=== PATIENT | female | born 2005 | race Two or more races ===

== ENCOUNTER 2024-10-30 19:57 | Emergency (ER) | payer MEDICAID ==
[~2024-10-30] VITALS: Ht 175.3 cm; Wt 103.8 kg
[2024-10-30 20:59] LABS: Basophils # (auto) 0 10 ^3/uL (0-0.2); Basophils % (auto) 0.2 % (0.0-2.0); Eosinophils # (auto) 0.1 10 ^3/uL (0-0.8); Eosinophils % (auto) 0.5 % (0.0-7.0); Hematocrit 45.2 % (36.0-46.0); Hemoglobin 15.7 g/dL (12.2-16.2); Lymphocytes # (auto) 0.7 10 ^3/uL (0.4-5.4); Lymphocytes % (auto) 6.8 % (10.0-50.0); Mean Corpuscular Hemoglobin 29.8 pg (28.0-32.0); Mean Corpuscular Hgb Conc. 34.7 g/dL (32.0-36.0); Monocytes # (auto) 0.3 10 ^3/uL (0-1.3); Monocytes % (auto) 2.8 % (0.0-12.0); Neutrophils % (auto) 89.7 % (37.0-80.0); Nucleated Red Blood Cells % 0.3 %; Platelet Count (auto) 254 10^3/uL (140-450); Red Blood Cells 5.25 10^6/uL (4.0-5.20)
[2024-10-30 21:19] LABS: Alanine Aminotransferase 27 U/L (7-40); Alkaline Phosphatase 86 U/L (46-116); Anion Gap 9 (5-15); Aspartate Aminotransferase 19 U/L (13-40); BUN/Creatinine Ratio 16.4 (10.0-20.0); Bilirubin, Total 0.9 mg/dL (0.2-1.0); Blood Urea Nitrogen 11 mg/dL (9-23); Calcium 10.1 mg/dL (8.7-10.4); Carbon Dioxide 23 mmol/L (20-31); Chloride 105 mmol/L (98-107); Lipase 51 U/L (12-53); Potassium 3.8 mmol/L (3.5-5.1); Sodium 137 mmol/L (136-145); Total Protein 7.9 g/dL (5.7-8.2)
[2024-10-30 21:25] VITALS: PULSE 105; RESP 20; O2SAT 99
[2024-10-30 21:30] LABS: Glucose 89 mg/dL (74-106)
[2024-10-30] MEDS: ONDANSETRON HCL 4 MG/2 ML VIAL IV ONE (21:37)
[2024-10-30] MEDS: SODIUM CHLORIDE 0.9% 1,000 ML IV ONE (21:37)
--- NOTE | 2024-10-30 22:22 | ED.PDOC ---
GI ASSESSMENT HPI Comments 19y F who presents to the ED for chief complaint of nausea and vomiting. Pt states she has been nausea and vomiting for the past 1 week. Pt states she has been having associated diffuse abdominal pain, rating her pain 8/10, constant, aching in nature, with no associated exacerbating or relieving factors. Pt states she has 10 vomiting episodes today and states she has not been able to keep any solids or liquids in this time period. Pt states she is currently on Wegovy and states she was off the medication for a few months due to medication running out. Pt otherwise denies any recent sick contacts or changes to diet. Pt denies any other symptoms at this time. Chief Complaint: Nausea/Vomiting Time Seen by MD: 22:11 Primary Care Provider: Siegel Reviewed Notes: Nurses Notes Allergies: Coded Allergies: NO KNOWN ALLERGIES (Unverified , 10/30/24) Home Meds Active Scripts Ondansetron Odt 4MG Tab (ZOFRAN PO) 4 Mg Tb, 4 MG PO TIDPRN PRN for 3 Days, #9 TAB ODT TAB-DISSOLVE IN MOUTH, THEN SWALLOW Prov:ANAMARIA CASE MD 10/31/24 Information Source: Patient Mode of Arrival: Ambulatory Brought in by: mother Vital Signs Vital Signs Date Time Temp Pulse Resp B/P (MAP) Pulse Ox O2 Delivery O2 Flow Rate FiO2 10/31/24 04:10 98 16 100 Room Air 10/31/24 04:10 99.0 147/88 (107) 99.0 10/30/24 21:25 0 21 Physical Exam General: Awake, alert and oriented. No acute distress. Skin: Skin in warm, dry and intact. Appropriate color for ethnicity. Nailbeds pink with no cyanosis. HEENT: The head is normocephalic and atraumatic. Conjunctivae are clear without exudates or hemorrhage. Sclera is non-icteric. EOM are intact. No signs of nystagmus. Eyelids are normal in appearance without swelling or lesions. Oral mucosa is pink and moist Neck: The neck is supple with normal range of motion. No JVD. Cardiac: Heart rate and rhythm are normal. No murmurs, gallops, or rubs are auscultated. Respiratory: No signs of respiratory distress. Lung sounds are clear in all lobes bilaterally without rales, ronchi, or wheezes. Abdominal: Abdomen is soft, non-tender without distention. Bowel sounds are present and normoactive in all four quadrants. Extremities: Upper and lower extremities are atraumatic in appearance without deformity or edema. Neurological: The patient is awake, alert and oriented to person, place, and time with normal speech. Speech is clear. There is no facial asymmetry. Psychiatric: Appropriate mood and affect. Good judgement and insight. No visual or auditory hallucinations. Review of Systems: As stated in HPI Was a procedure done? Was a procedure done?: No GI differential Dx Differential Diagnosis: Gastritis/PUD, Gastroenteritis, Electrolyte Imbalance, Food Poisoning, Bacterial, Viral Other Differential Diagnosis medication side effect, X-Ray, Labs, Meds, VS Vital Signs Date Time Temp Pulse Resp B/P (MAP) Pulse Ox O2 Delivery O2 Flow Rate FiO2 10/31/24 04:10 98 16 100 Room Air 10/31/24 04:10 99.0 98 16 147/88 (107) 100 99.0 10/30/24 21:25 105 20 99 Room Air* 0 21 10/30/24 21:24 107 18 110/73 (85) 99 10/30/24 20:11 97.5 103 20 122/53 (76) 97 Lab Test 10/31/24 02:46 10/30/24 20:30 Range/Units Urine Color Yellow Yellow Urine Clarity Clear Clear Urine pH 5.5 5.0-9.0 Urine Specific Barton 1.026 1.001-1.035 Urine Protein Negative Negative Urine Ketones 4+ H Negative Urine Blood Negative Negative /uL Urine Nitrite Negative Negative Urine Bilirubin Negative Negative Urine Urobilinogen Normal Negative mg/dL Urine Leukocyte Esterase Negative Negative /uL Urine RBC 2 0 - 4 /hpf Urine WBC 2 0 - 5 /hpf Urine Squamous Epithelial Cells Few <5 /hpf Urine Bacteria None seen None Seen /hpf Urine Mucus Few None Seen Urine Glucose Normal Normal mg/dL Urine Test Negative Negative White Blood Count 10.0 4.4-10.8 10^3/uL Red Blood Count 5.25 H 4.0-5.20 10^6/uL Hemoglobin 15.7 12.2-16.2 g/dL Hematocrit 45.2 36.0-46.0 % Mean Corpuscular Volume 86.0 80.0-100.0 fL Mean Corpuscular Hemoglobin 29.8 28.0-32.0 pg Mean Corpuscular Hemoglobin Concent 34.7 32.0-36.0 g/dL Red Cell Distribution Width 14.0 11.8-14.3 % Platelet Count 254 140-450 10^3/uL Mean Platelet Volume 7.9 6.9-10.8 fL Neutrophils (%) (Auto) 89.7 H 37.0-80.0 % Lymphocytes (%) (Auto) 6.8 L 10.0-50.0 % Monocytes (%) (Auto) 2.8 0.0-12.0 % Eosinophils (%) (Auto) 0.5 0.0-7.0 % Basophils (%) (Auto) 0.2 0.0-2.0 % Neutrophils # (Auto) 9.0 H 1.6-8.6 10 ^3/uL Lymphocytes # (Auto) 0.7 0.4-5.4 10 ^3/uL Monocytes # (Auto) 0.3 0-1.3 10 ^3/uL Eosinophils # (Auto) 0.1 0-0.8 10 ^3/uL Basophils # (Auto) 0 0-0.2 10 ^3/uL Nucleated Red Blood Cells 0.3 % Sodium Level 137 136-145 mmol/L Potassium Level 3.8 3.5-5.1 mmol/L Chloride Level 105 98-107 mmol/L Carbon Dioxide Level 23 20-31 mmol/L Anion Gap 9 5-15 Blood Urea Nitrogen 11 9-23 mg/dL Creatinine 0.67 0.550-1.02 mg/dL Glomerular Filtration Rate Calc 127 >90 mL/min BUN/Creatinine Ratio 16.4 10.0-20.0 Serum Glucose 89 74-106 mg/dL Calcium Level 10.1 8.7-10.4 mg/dL Total Bilirubin 0.9 0.2-1.0 mg/dL Aspartate Amino Transferase (AST) 19 13-40 U/L Alanine Aminotransferase (ALT) 27 7-40 U/L Alkaline Phosphatase 86 46-116 U/L Total Protein 7.9 5.7-8.2 g/dL Albumin 5.0 H 3.2-4.8 g/dL Lipase 51 12-53 U/L Current Medications Medications (Trade) Dose Ordered Sig/Balwinder Route Start Time Stop Time Status Last Admin Ondansetron HCl (Zofran) 4 mg ONCE ONCE IV 10/31/24 03:45 10/31/24 03:46 DC 10/31/24 04:00 Time of 1ST Reevaluation: 22:45 Reevaluation 1ST: Unchanged Patient Education/Counseling: Diagnosis, Treatment Family Education/Counseling: Diagnosis, Treatment Departure 1 Departure Time of Disposition: 03:40 Impression: Primary Impression: Nausea & vomiting Disposition: 01 HOME / SELF CARE / HOMELESS Condition: Stable Additional Instructions: ED DISCHARGE INSTRUCTIONS Instructions: Please read all instructions provided in this packet carefully. Although you have been discharged from the Emergency Department, this does not mean that you have a "clean bill of health". No definitive diagnosis for your symptoms has been made today. It is possible that you are in the process of developing a serious illness. This is why you must return to the ED without fail if any new or worsening symptoms (especially if your symptoms include chest pain, trouble breathing, abdominal pain, fever, headache, confusion, trouble seeing, or trouble walking) It is also very important that you see a primary care doctor within the next 1- 3 days to follow up. If you are unable to get an appointment, return to the ED for re-evaluation. Nausea and Vomiting: Care Instructions Overview When you are nauseated, you may feel weak and sweaty and notice a lot of saliva in your mouth. Nausea often leads to vomiting. Most of the time you do not need to worry about nausea and vomiting, but they can be signs of other illnesses. Two common causes of nausea and vomiting are a stomach infection and food poisoning. Nausea and vomiting from a viral stomach infection will usually start to improve within 24 hours. Nausea and vomiting from food poisoning may last from 12 to 48 hours. The doctor has checked you carefully, but problems can develop later. If you notice any problems or new symptoms, get medical treatment right away. Follow-up care is a jaramillo part of your treatment and safety. Be sure to make and go to all appointments, and call your doctor if you are having problems. It's also a good idea to know your test results and keep a list of the medicines you take. How can you care for yourself at home? To prevent dehydration, drink plenty of fluids. Choose water and other clear liquids until you feel better. If you have kidney, heart, or liver disease and have to limit fluids, talk with your doctor before you increase the amount of fluids you drink. Rest in bed until you feel better. When you are able to eat, try clear soups, mild foods, and liquids until all symptoms are gone for 12 to 48 hours. Other good choices include dry toast, crackers, cooked cereal, and gelatin dessert, such as Jell-O. When should you call for help? Call 911 anytime you think you may need emergency care. For example, call if: You passed out (lost consciousness). Call your doctor now or seek immediate medical care if: You have symptoms of dehydration, such as: Dry eyes and a dry mouth. Passing only a little urine. Feeling thirstier than usual. You have new or worsening belly pain. You have a new or higher fever. You vomit blood or what looks like coffee grounds. Watch closely for changes in your health, and be sure to contact your doctor if: You have ongoing nausea and vomiting. Your vomiting is getting worse. Your vomiting lasts longer than 2 days. You are not getting better as expected. Credits for Nausea and Vomiting: Care Instructions Current as of: August 05, 2023 Author: [employer] Clinical Review Board All [employer] education is reviewed by a team that includes physicians, nurses, advanced practitioners, registered dieticians, and other healthcare professionals. e-Prescriptions Ondansetron Odt 4MG Tab (ZOFRAN PO) 4 Mg Tb 4 MG PO TIDPRN PRN for 3 Days, #9 TAB ODT TAB-DISSOLVE IN MOUTH, THEN SWALLOW Prov: ANAMARIA CASE MD 10/31/24 Comments [age] yo female presented with abdominal pain. No peritoneal signs on abdominal exam. No evidence of acute abdomen at this time. patient is well appearing. Labs show no leukocytosis or elevates of LFTs patient is afebrile. Patient is not hypotensive. Low suspicion for acute hepatobiliary disease (including acute cholecystitis, acute pancreatitis, PUD (including perforation), acute infectious process (pneumonia, hepatitis, pyelonephritis), acute appendicitis, vascular catastrophe, bowel obstructions, viscous perforatio. Presentation not consistent with other acute, emergent causes of abdominal pain at this time. Patient well-appearing, nontoxic. Advised prompt follow-up with PCP, return to the ED with any new, worsening or concerning symptoms. Critical Care Note Critical Care Time?: No Stability Stability form required: No Heart Score Heart Score: Heart Score Response (Comments) Value History N/A 0 EKG N/A 0 Age N/A 0 Risk Factors N/A 0 Troponin N/A 0 Total 0 I personally scribed for ANAMARIA CASE MD ([email or web address]) on 10/30/24 at 22:22. Electronically submitted by Rosie Gannon ([facility]). ANAMARIA CASE MD Oct 30, 2024 22:22
[2024-10-31 02:46] LABS: Urine Bacteria None Seen /hpf (None Seen)
[2024-10-31 03:15] LABS: Urine Blood Negative /uL (Negative); Urine Clarity Clear (Clear); Urine Color Yellow (Yellow); Urine Mucus FEW (None Seen); Urine Protein, UAD Negative (Negative); Urine Specific Gravity 1.026 (1.001-1.035); Urine Squamous Epithelial Cell FEW /hpf (<5); Urine Urobilinogen Normal (Negative); Urine WBC 2 /hpf (0 - 5); Urine pH 5.5 (5.0-9.0)
[2024-10-31] MEDS: SODIUM CHLORIDE 0.9% 1,000 ML IV ONE (03:23)
[2024-10-31] MEDS ORDERED: ZOFR4T PO (03:59)
[2024-10-31] MEDS: ONDANSETRON HCL 4 MG/2 ML VIAL IV ONE (04:00)
[2024-10-31 04:10] VITALS: BP 147/88; PULSE 98; RESP 16; TEMP 99; O2SAT 100
== END 2024-10-31 04:13 | disposition home or self-care (01) ==
LOC: ER 19:57
DX: R11.2 Nausea with vomiting, unspecified (principal); R10.84 Generalized abdominal pain; Z32.02 Encounter for pregnancy test, result negative
CPT/HCPCS: 36415; 80053; 81001; 81025; 83690; 85025; 96361; 96374; 96376; 99284; J2405; J7030

== ENCOUNTER 2024-11-19 11:19 | Emergency (ER) | payer MEDICAID ==
[~2024-11-19] VITALS: Ht 175.3 cm; Wt 97.6 kg
[~2024-11-19 11:19] MED LIST: ZOFR4T PO
--- NOTE | 2024-11-19 11:54 | ED.PDOC ---
GI ASSESSMENT HPI Comments 19 y.o female presents to the ED for a chief complaint of diffused abdominal pain that presented one week ago. Patient describes pain as sharp, is constant, and radiates to bilateral flank and back region. Patient was seen at this ED on 10/31/24 for similar complaint, was diagnosed with gastroenteritis. Patient had a couple of episodes of emesis 1-2 days ago. Patient states since that visit, her symptoms have not improved. Patient denies any vaginal bleeding, nausea, vomiting today, fever, chills, dysuria. She denies any medical, surgical history or allergies. Last menstrual cycle was 11/04/24 Chief Complaint: Abdominal Pain Time Seen by MD: 11:45 Primary Care Provider: JOLANTA Reviewed Notes: Nurses Notes, Medications, Allergies Allergies: Coded Allergies: NO KNOWN ALLERGIES (Unverified , 10/30/24) Home Meds Active Scripts Ondansetron Odt 4MG Tab (ZOFRAN PO) 4 Mg Tb, 4 MG PO TIDPRN PRN for 3 Days, #9 TAB ODT TAB-DISSOLVE IN MOUTH, THEN SWALLOW Prov:ANAMARIA CASE MD 10/31/24 Information Source: Patient Mode of Arrival: Ambulatory Timing: Weeks (1) Duration: Since onset Quality: Aching, Cramping, Sharp Vomitus: Hard Stool: Normal Severity: Moderate Recent: None Recent Hx of: None Pain Location: Diffuse Associated sign and symptoms: Abdominal Pain Past Medical History PAST MEDICAL HISTORY: Denies Surgical History: Denies all surgeries 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 History Family History Family History: Reviewed,noncontributory to illness, No family hx of Cancer, No family hx of DM, No family hx of Heart saad, No family hx of HTN, No family hx ofKidney saad, No family hx of Liver saad, No family hx of Lung saad, No family hx of Stroke Social History Smoker: Non-Smoker Alcohol: Denies ETOH Use Drugs: Denies Drug Use Lives In: Home Constitutional: denies: chills, diaphoresis, fatigue, fever, malaise, sweats, weakness, others EENTM: denies: blurred vision, double vision, ear bleeding, ear discharge, ear drainage, ear pain, ear ringing, eye pain, eye redness, hearing loss, mouth pain, mouth swelling, nasal discharge, nose bleeding, nose congestion, nose pain, photophobia, tearing, throat pain, throat swelling, voice changes, others Respiratory: denies: cough, hemoptysis, orthopnea, SOB at rest, shortness of breath, SOB with excertion, stridor, wheezing, others Cardiovascular: denies: chest pain, dizzy spells, diaphoresis, Dyspnea on exertion, edema, irregular heart beat, left arm pain, lightheadedness, palpitations, PND, syncope, others Gastrointestinal: reports: abdominal pain; denies: abdomen distended, blood streaked bowels, constipated, diarrhea, dysphagia, difficulty swallowing, hematemesis, melena, nausea, poor appetite, poor fluid intake, rectal bleeding, rectal pain, vomiting, others Genitourinary: reports: flank pain; denies: abnormal vagina bleeding, burning, dyspareunia, dysuria, frequency, hematuria, incontinence, pain, , vagina discharge, urgency, others Neurological: denies: dizziness, fainting, headache, left sided numbness, left sided weakness, numbness, paresthesia, pre-existing deficit, right sided numbness, right sided weakness, seizure, speech problems, tingling, tremors, weakness, others Musculoskeletal: reports: back pain; denies: gout, joint pain, joint swelling, muscle pain, muscle stiffness, neck pain, others Integumetry: denies: bruises, change in color, change in hair/nails, dryness, laceration, lesions, lumps, rash, wounds, others Allergic/Immunocompromised: denies: Difficulty Healing, Frequent Infections, Hives, Itching, others Hematologic/Lymphatic: denies: anemia, blood clots, easy bleeding, easy bruising, swollen glands, others Endocrine: denies: excessive hunger, excessive sweating, excessive thirst, excessive urination, flushing, intolerance to cold, intolerance to heat, unexplained weight gain, unexplained weight loss, others Psychiatric: denies: anxiety, bipolar disorder, depression, hopeless, panic disorder, schizophrenia, sleepless, suicidal, others All Other Systems: Reviewed and Negative Physical Exam General Appearance: No Apparent Distress, Normal HEENT: Normal ENT Inspection, Pharynx Normal, TMs Normal Neck: Full Range of Motion, Non-Tender, Normal, Normal Inspection Respiratory: Chest Non-Tender, Lungs Clear, No Accessory Muscle Use, No Respiratory Distress, Normal Breath Sounds Cardiovascular: No Edema, No JVD, No Murmur, No Gallop, Normal Peripheral Pulses, Regular Rate/Rhythm Breast Exam: Deferred Gastrointestinal: No Organomegaly, Non Tender, No Pulsatile Mass, Normal Bowel Sounds, Soft Genitalia: Deferred Pelvic: Deferred Rectal: Deferred Extremities: No calf tenderness, Normal capillary refill, Normal inspection, Normal range of motion, Non-tender, No pedal edema Musculoskeletal : Apperance: Normal Neurologic: Alert, senior stock plan administrator II-XII nml as Tested, No Motor Deficits, Normal Affect, Normal Mood, No Sensory Deficits Cerebellar Function: NOT DONE Reflexes: NOT DONE Skin: Dry, Normal Color, Warm Lymphatic: No Adenopathy Was a procedure done? Was a procedure done?: No GI differential Dx Differential Diagnosis: Constipation, Esophagitis, Gastroenteritis, Inflammatory BD, Electrolyte Imbalance, Food Poisoning, , Bacterial, Parasitic, Viral X-Ray, Labs, Meds, VS Vital Signs Date Time Temp Pulse Resp B/P (MAP) Pulse Ox O2 Delivery O2 Flow Rate FiO2 11/19/24 13:01 92 16 122/72 (89) 100 11/19/24 13:01 92 16 122/72 11/19/24 12:11 85 16 106/62 11/19/24 12:05 85 16 95 Room Air* 0 21 11/19/24 12:03 98.0 85 16 106/62 (77) 95 98.0 11/19/24 11:25 97.7 95 18 149/86 (107) 97 Lab Test 11/19/24 11:53 Range/Units White Blood Count 4.6 4.4-10.8 10^3/uL Red Blood Count 4.82 4.0-5.20 10^6/uL Hemoglobin 14.1 12.2-16.2 g/dL Hematocrit 41.2 36.0-46.0 % Mean Corpuscular Volume 85.4 80.0-100.0 fL Mean Corpuscular Hemoglobin 29.3 28.0-32.0 pg Mean Corpuscular Hemoglobin Concent 34.3 32.0-36.0 g/dL Red Cell Distribution Width 14.2 11.8-14.3 % Platelet Count 209 140-450 10^3/uL Mean Platelet Volume 8.3 6.9-10.8 fL Neutrophils (%) (Auto) 67.8 37.0-80.0 % Lymphocytes (%) (Auto) 24.3 10.0-50.0 % Monocytes (%) (Auto) 6.3 0.0-12.0 % Eosinophils (%) (Auto) 1.1 0.0-7.0 % Basophils (%) (Auto) 0.5 0.0-2.0 % Neutrophils # (Auto) 3.1 1.6-8.6 10 ^3/uL Lymphocytes # (Auto) 1.1 0.4-5.4 10 ^3/uL Monocytes # (Auto) 0.3 0-1.3 10 ^3/uL Eosinophils # (Auto) 0.1 0-0.8 10 ^3/uL Basophils # (Auto) 0 0-0.2 10 ^3/uL Nucleated Red Blood Cells 0.2 % Sodium Level 140 136-145 mmol/L Potassium Level 3.6 3.5-5.1 mmol/L Chloride Level 105 98-107 mmol/L Carbon Dioxide Level 22 20-31 mmol/L Anion Gap 13 5-15 Blood Urea Nitrogen 8 L 9-23 mg/dL Creatinine 0.86 0.550-1.02 mg/dL Glomerular Filtration Rate Calc 99 >90 mL/min BUN/Creatinine Ratio 9.3 L 10.0-20.0 Serum Glucose 75 74-106 mg/dL Calcium Level 9.8 8.7-10.4 mg/dL Total Bilirubin 0.9 0.2-1.0 mg/dL Direct Bilirubin 0.4 H <0.3 mg/dL Aspartate Amino Transferase (AST) 32 13-40 U/L Alanine Aminotransferase (ALT) 49 H 7-40 U/L Alkaline Phosphatase 65 46-116 U/L Total Protein 7.1 5.7-8.2 g/dL Albumin 4.7 3.2-4.8 g/dL Lipase 40 12-53 U/L Current Medications Medications (Trade) Dose Ordered Sig/Balwinder Route Start Time Stop Time Status Last Admin Sodium Chloride 1,000 ml @ 1,000 mls/hr Q1H ONCE IV 11/19/24 12:00 11/19/24 12:59 DC 11/19/24 12:10 Morphine Sulfate 4 mg ONCE ONCE IV 11/19/24 12:00 11/19/24 12:01 DC 11/19/24 12:11 Ondansetron HCl (Zofran) 4 mg ONCE ONCE IV 11/19/24 12:00 11/19/24 12:01 DC 11/19/24 12:10 X-Ray, Labs, Meds, VS Comment Patient presents with acute onset of nausea/vomiting without clear etiology from evaluation today and may represent acute viral infection/gastroenteritis amongst an otherwise broad differential. Today with no signs of dehydration or COLLETTE. Symptomatic control achieved in the emergency department with fluids, zofran, morphine and patient able to tolerate PO and reported total relief of symptoms. Their repeat exam was benign without abdominal tenderness to palpation and they appear well hydrated. Discussed symptomatic management and supportive care. Patient to follow-up with primary care provider within the next 2-3 days for reevaluation. Reviewed return precautions including, but not limited to worsening/return of symptoms, fever, PO intolerance, abdominal pain, dysuria/hematuria, or any other concerning symptoms. Patient is in agreement with the plan and all questions answered. Patient was discharged home in stable condition. Differential includes but is not limited to: AGE, food poisoning, gastroparesis, vertigo, cvs/cannabinoid hyperemesis syndrome, appendicitis, biliary disease, pancreatitis, kidney stone, SBO, mesenteric ischemia, ACS, UTI, aortic disease, testicular ovarian torsion, reducible, incarcerated, and strangulated hernia. Time of 1ST Reevaluation: 11:53 Reevaluation 1ST: Improved Time of 2ND Reevaluation: 14:38 Reevaluation 2ND: Improved Patient Education/Counseling: Diagnosis, Treatment, Prognosis Family Education/Counseling: No Family Present Departure 1 Departure Time of Disposition: 15:09 Impression: Primary Impression: Abdominal pain Additional Impression: Nausea & vomiting Disposition: 01 HOME / SELF CARE / HOMELESS Condition: Stable Discharged With: Self Critical Care Note Critical Care Time?: No Stability Stability form required: No I personally scribed for YOHAN RICE MD ([email or web address]) on 11/19/24 at 11:53. Electronically submitted by Kalli Sagastume ([facility]). YOHAN RICE MD Nov 19, 2024 11:53
[2024-11-19 12:05] VITALS: PULSE 85; RESP 16; O2SAT 95
[2024-11-19] MEDS: SODIUM CHLORIDE 0.9% 1,000 ML IV ONE (12:10)
[2024-11-19] MEDS: ONDANSETRON HCL 4 MG/2 ML VIAL IV ONE (12:10)
[2024-11-19] MEDS: MORPHINE SULFATE 4 MG/ML SYR/VIAL IV ONE (12:11)
[2024-11-19 12:24] LABS: Basophils # (auto) 0 10 ^3/uL (0-0.2); Basophils % (auto) 0.5 % (0.0-2.0); Eosinophils # (auto) 0.1 10 ^3/uL (0-0.8); Eosinophils % (auto) 1.1 % (0.0-7.0); Hematocrit 41.2 % (36.0-46.0); Hemoglobin 14.1 g/dL (12.2-16.2); Lymphocytes # (auto) 1.1 10 ^3/uL (0.4-5.4); Lymphocytes % (auto) 24.3 % (10.0-50.0); Mean Corpuscular Hemoglobin 29.3 pg (28.0-32.0); Mean Corpuscular Hgb Conc. 34.3 g/dL (32.0-36.0); Mean Corpuscular Volume 85.4 fL (80.0-100.0); Monocytes # (auto) 0.3 10 ^3/uL (0-1.3); Monocytes % (auto) 6.3 % (0.0-12.0); Neutrophils # (auto) 3.1 10 ^3/uL (1.6-8.6); Neutrophils % (auto) 67.8 % (37.0-80.0); Nucleated Red Blood Cells % 0.2 %; Platelet Count (auto) 209 10^3/uL (140-450); Red Blood Cells 4.82 10^6/uL (4.0-5.20); Red Cell Distribution Width 14.2 % (11.8-14.3); White Blood Cell 4.6 10^3/uL (4.4-10.8)
[2024-11-19 12:53] LABS: Albumin 4.7 g/dL (3.2-4.8); Alkaline Phosphatase 65 U/L (46-116); Anion Gap 13 (5-15); Aspartate Aminotransferase 32 U/L (13-40); BUN/Creatinine Ratio 9.3 (10.0-20.0); Calcium 9.8 mg/dL (8.7-10.4); Carbon Dioxide 22 mmol/L (20-31); Chloride 105 mmol/L (98-107); Glucose 75 mg/dL (74-106); Potassium 3.6 mmol/L (3.5-5.1); Sodium 140 mmol/L (136-145)
[2024-11-19 12:54] LABS: Bilirubin, Total 0.9 mg/dL (0.2-1.0); Total Protein 7.1 g/dL (5.7-8.2)
[2024-11-19 12:55] LABS: Alanine Aminotransferase 49 U/L (7-40); Bilirubin, Direct 0.4 mg/dL (<0.3); Blood Urea Nitrogen 8 mg/dL (9-23)
[2024-11-19 13:07] LABS: Lipase 40 U/L (12-53)
[2024-11-19 15:37] LABS: Urine Bacteria None Seen /hpf (None Seen)
[2024-11-19 15:51] LABS: Urine Blood Negative /uL (Negative); Urine Clarity Turbid (Clear); Urine Color Yellow (Yellow); Urine Mucus FEW (None Seen); Urine Protein, UAD 1+ (Negative); Urine Specific Gravity 1.028 (1.001-1.035); Urine Squamous Epithelial Cell MANY /hpf (<5); Urine Urobilinogen 4 mg/dL (Negative); Urine WBC 21 /HPF (0-5)
[2024-11-19 16:15] VITALS: BP 111/65; PULSE 98; RESP 14; TEMP 97.9; O2SAT 99
[2024-11-19] MEDS ORDERED: ZOFR4T PO (16:25)
== END 2024-11-19 16:18 | disposition home or self-care (01) ==
LOC: ER 11:23
DX: R10.84 Generalized abdominal pain (principal); R11.2 Nausea with vomiting, unspecified
CPT/HCPCS: 36415; 80048; 80076; 81001; 81025; 83690; 85025; 96361; 96374; 96375; 99284; J2270; J2405; J7030